=== PATIENT | male | born 1980 | race Two or more races ===

== ENCOUNTER 2016-08-31 21:45 | Emergency (ER) | payer MEDICAID ==
[~2016-08-31] VITALS: Ht 185.4 cm; Wt 99.8 kg
[2016-08-31 21:52] VITALS: BP 121/78
[2016-08-31] MEDS ORDERED: ONDANSETRON 4 MG TAB.RAPDIS ONE (22:27)
[2016-08-31] MEDS ORDERED: ONDANSETRON 4 MG TAB.RAPDIS SL ONE (22:30)
== END 2016-08-31 22:37 | disposition home or self-care (01) ==
LOC: ER 21:45
DX: M54.5 Low back pain (principal); M79.1 Myalgia; R11.0 Nausea; V49.40XA Driver injured in collision with unspecified motor vehicles in traffic accident, initial encounter; Y93.89 Activity, other specified; Y92.89 Other specified places as the place of occurrence of the external cause; Y99.9 Unspecified external cause status
CPT/HCPCS: 99283; A4606; Q0162; Z7610